=== PATIENT | female | born 1965 ===

== ENCOUNTER → 2020-04-10 12:29 | Outpatient (CLI) | payer OTHER, SELFPAY ==
[2020-04-10] MEDS: COVID-19 VACC(MODERNA-1)/PF 100 MCG/0.5 ML VIAL IM (12:33)
== END ==
PROVIDERS: Visit Provider Internal Medicine
DX: Z23 Encounter for immunization (principal)
CPT/HCPCS: 0011A; 91301

== ENCOUNTER → 2020-05-08 12:26 | Outpatient (CLI) | payer OTHER, SELFPAY ==
[2020-05-08] MEDS: COVID-19 VACC #2, MRNA(MOD) 100 MCG/0.5 ML VIAL IM (12:32)
== END ==
PROVIDERS: Visit Provider Internal Medicine
DX: Z23 Encounter for immunization (principal)
CPT/HCPCS: 0012A; 91301